=== PATIENT | male | born 1960 | race Caucasian/White ===

== ENCOUNTER 2016-12-31 11:25 | Emergency (ER) | payer SELFPAY ==
[~2016-12-31] VITALS: Ht 172.7 cm; Wt 58.5 kg
[~2016-12-31 11:25] MED LIST: LEVO500T8 PO; PRED-220 PO; PRED2.5T PO
[2016-12-31 12:13] VITALS: BP 136/85
--- NOTE | 2016-12-31 12:40 | PHYS DOC ---
Past Medical History Past Medical History: No Pertinent History Past Surgical History: Appendectomy Alcohol Use: None Drug Use: None Adult General Chief Complaint Chief Complaint: [facility] HPI Patient is a 56 year old [id number] male presents emergency Department with complaint of atraumatic right shoulder pain is been progressive in nature over the past month. He states it really increased in intensity yesterday which kept him from her raise his arm above his head. 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 He denies any previous known injuries to his shoulder or surgeries. He denies any history of osteoarthritis or inflammatory arthritide's. Review of Systems Review of Systems Constitutional: Denies fever or chills [] Eyes: Denies change in visual acuity, redness, or eye pain [] HENT: Denies nasal congestion or sore throat [] Respiratory: Denies cough or shortness of breath [] Cardiovascular: No additional information not addressed in HPI [] GI: Denies abdominal pain, nausea, vomiting, bloody stools or diarrhea [] : Denies dysuria or hematuria [] Musculoskeletal: Denies back pain or joint pain [] Integument: Denies rash or skin lesions [] Neurologic: Denies headache, focal weakness or sensory changes [] Endocrine: Denies polyuria or polydipsia [] Allergies Allergies Allergies Coded Allergies Type Severity Reaction Last Updated Verified Tetanus Vaccines and Toxoid Allergy Severe ANAPHYLAXIS 03/12/15 Yes Physical Exam Physical Exam Constitutional: Well developed, well nourished, no acute distress, non-toxic appearance. [] HENT: Normocephalic, atraumatic, bilateral external ears normal, oropharynx moist, no oral exudates, nose normal. [] Eyes: PERRLA, EOMI, conjunctiva normal, no discharge. [] Neck: Normal range of motion, no tenderness, supple, no stridor. [] Cardiovascular:Heart rate regular rhythm, no murmur [] Lungs & Thorax: Bilateral breath sounds clear to auscultation [] Abdomen: Bowel sounds normal, soft, no tenderness, no masses, no pulsatile masses. [] Skin: Warm, dry, no erythema, no rash. [] Back: No tenderness, no CVA tenderness. [] Extremities: Right shoulder is normal in appearance. Patient complains of just palpation to the entire shoulder girdle. Patient complains of focal area of pain to the right bicep tendon. Is no palpable defect or deformity to the tendon. Flexion and extension of the upper arm is maintained. Upon passive range of motion, patient complains of pain and resist against anterior raising, abduction, abduction. There is no palpable instability or crepitus. Right upper extremity is neurovascular intact with capillary refill less than 2 seconds. Neurologic: Alert and oriented X 3, normal motor function, normal sensory function, no focal deficits noted. [] Psychologic: Affect normal, judgement normal, mood normal. [] Current Patient Data Vital Signs Vital Signs Date Time Temp Pulse Resp B/P Pulse Ox O2 Delivery O2 Flow Rate FiO2 12/31/16 12:13 98.8 60 20 97 Room Air 98.8 EKG EKG [] Radiology/Procedures Radiology/Procedures [facility] [address] [place] [address] IMAGING REPORT Signed PATIENT: WILMAR FRANK ACCOUNT: [id number] : 1960 LOCATION: ER AGE: 56 SEX: M EXAM STATUS: REG ER ORD. PHYSICIAN: RAMON ROLDAN REASON: pain for a week PROCEDURE: SHOULDER 2+V RIGHT SHOULDER 2+V RIGHT Clinical Indication: pain for a week Comparison: None. Technique: Internal and external rotational and Y scapular views of the right shoulder are obtained. Findings: No acute fracture or dislocation is seen. Glenohumeral and acromioclavicular joints are maintained. Visualized ribs appear intact. Visualized right lung is clear. Surrounding soft tissues demonstrate no acute finding. IMPRESSION: No acute fracture or dislocation. DICTATED and SIGNED BY: NAYELI HUTSON MD DATE: 12/31/16 1300 CC: RAMON ROLDAN; NO PCP ~ Course & Med Decision Making Course & Med Decision Making Pertinent Labs and Imaging studies reviewed. (See chart for details) [] Dragon Disclaimer Dragon Disclaimer This electronic medical record was generated, in whole or in part, using a voice recognition dictation system. Departure Departure Impression: Primary Impression: Tendonitis Disposition: 01 HOME, SELF-CARE Condition: GOOD Referrals: NO PCP (PCP) Patient Instructions: Bicipital Tendonitis Additional Instructions: 1. The x-rays of your shoulder today are normal. 2. Review the discharge instructions provided for self-care and reasons to return to the emergency department. 3. Take the medication as prescribed. 4. Use the pamphlet provided for assistance in finding a primary care doctor in which you can follow-up within the next 7-10 days. Scripts Tramadol Hcl/Acetaminophen (Tramadol-Acetaminophn 37.5-325)1 Each Tablet1 Tab PO Q6H breaktthrough pain #15 TAB Ref 0 Prov:RAMON ROLDAN 12/31/16 Naproxen 500 Mg Tablet1 Tab PO BID shoulder pain #30 TAB Ref 1 Prov:RAMON ROLDAN 12/31/16 RAMON ROLDAN Dec 31, 2016 12:40
--- NOTE | 2016-12-31 13:06 | RAD ---
SHOULDER 2+V RIGHT Clinical Indication: pain for a week Comparison: None. Technique: Internal and external rotational and Y scapular views of the right shoulder are obtained. Findings: No acute fracture or dislocation is seen. Glenohumeral and acromioclavicular joints are maintained. Visualized ribs appear intact. Visualized right lung is clear. Surrounding soft tissues demonstrate no acute finding. IMPRESSION: No acute fracture or dislocation.
[2016-12-31] MEDS ORDERED: NAPR500T3 PO (13:19)
[2016-12-31] MEDS ORDERED: TRAM1TAB4 PO (13:19)
== END 2016-12-31 13:25 | disposition home or self-care (01) ==
LOC: ER 11:25
DX: M75.91 Shoulder lesion, unspecified, right shoulder (principal); Z90.49 Acquired absence of other specified parts of digestive tract; Z88.7 Allergy status to serum and vaccine
CPT/HCPCS: 73030; 99284

== ENCOUNTER 2017-11-16 16:27 | Emergency (ER) | payer SELFPAY ==
[2017-11-16] MEDS: PIPERACILLIN/TAZOBACTAM 3.375 GM in IV NORMAL SALINE 50ML 50 ML IV (17:34)
[2017-11-16] MEDS: BUPIVACAINE 0.5% 50 ML VIAL. IJ ×2 (17:35)
[2017-11-16] MEDS: NEOMY/BACITR/POLYMYXIN OINT PACKET. TP ×2 (17:35)
== END 2017-11-16 18:25 | disposition home or self-care (01) ==
LOC: ER 16:27
DX: S62.631B Displaced fracture of distal phalanx of left index finger, initial encounter for open fracture (principal); Z88.7 Allergy status to serum and vaccine; Z90.49 Acquired absence of other specified parts of digestive tract; W27.0XXA Contact with workbench tool, initial encounter; Y93.89 Activity, other specified; Y92.89 Other specified places as the place of occurrence of the external cause; Y99.8 Other external cause status
CPT/HCPCS: 29130; 64450; 73140; 96365; 99284-25; J2543; J3490